=== PATIENT | female | born 1995 | race Caucasian/White ===

== ENCOUNTER 2021-02-04 17:17 | Emergency (ER) | payer BC, SELFPAY ==
[2021-02-04 17:18] VITALS: BP 123/94; PULSE 104; RESP 16; TEMP 36.6; O2SAT 98; BMI 30.1
--- NOTE | 2021-02-04 17:40 | RAD_ITS ---
STUDY: X-RAY - LEFT CLAVICLE REASON FOR EXAM: Female, 25 years old. Injury TECHNIQUE: 2 view(s) of the clavicle. COMPARISON: None. FINDINGS: Normal clavicle. Normal acromioclavicular articulation. Normal visualized sternoclavicular articulation. Normal visualized pulmonary apex. RAD/Clavicle IMPRESSION: Normal x-ray examination of the clavicle. Electronically Signed: Logan Franco DO at 19:28 EDT Tel [phone], Service support ,
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
[2021-02-04] MEDS: Ibuprofen 600 MG Tablet PO (17:53)
[2021-02-04 18:14] LABS: Color, Urine Yellow (Yellow); Glucose, Dipstick Normal (Normal); Ketone-Dipstick 5 mg/dl (Negative); Leukocyte Esterase-Dipstick Negative /ul (Negative); Nitrite-Dipstick Negative (Negative); Occult Blood-Urine 10 /ul (Negative); Protein-Dipstick 15 mg/dl (Negative); Specific Gravity, Urine 1.025 (1.002-1.030); Urine Bilirubin Dipstick Negative (Negative); Urine Clarity Cloudy (Clear); Urine Urobilinogen 1 mg/dl (Normal)
--- NOTE | 2021-02-04 18:15 | RAD_ITS ---
STUDY: X-RAY CHEST REASON FOR EXAM: Female, 25 years old. Trauma TECHNIQUE: Frontal view COMPARISON: None. FINDINGS: The lungs are clear and expanded. There is no demonstrated pleural abnormality. Normal size heart. Normal mediastinum and teresita. Normal visualized pulmonary arteries. Normal visualized aortic arch and descending thoracic aorta. Normal visualized thoracic spine. Normal visualized ribs, clavicles, and shoulders. There is no demonstrated abnormality of the visualized soft tissue structures of the upper abdomen. RAD/Chest 1 View IMPRESSION: Normal x-ray examination of the chest. Electronically Signed: Logan Franco DO at 19:27 EDT Tel [phone], Service support ,
[2021-02-04 18:31] LABS: Mucous, Urine 2+ /hpf (<or=2+); Squamous Epithelial Cells - UA 0-5 SEEN /hpf (5-10)
[2021-02-04 18:33] LABS: Red Blood Cells-Urine 0-5 SEEN /hpf (0-5)
[2021-02-04 18:34] LABS: Bacteria RARE /hpf (None Seen); White Blood Cells 0-5 SEEN /hpf (0-5)
[2021-02-04 19:15] VITALS: PULSE 88; RESP 16; O2SAT 98
== END 2021-02-04 19:16 | disposition home or self-care (01) ==
PROVIDERS: Emergency Provider Emergency Medicine
DX: S40.012A Contusion of left shoulder, initial encounter (principal); Y99.9 Unspecified external cause status; S10.91XA Abrasion of unspecified part of neck, initial encounter; V43.52XA Car driver injured in collision with other type car in traffic accident, initial encounter; Y93.9 Activity, unspecified; Y92.9 Unspecified place or not applicable; Y92.410 Unspecified street and highway as the place of occurrence of the external cause; S00.81XA Abrasion of other part of head, initial encounter
CPT/HCPCS: 71045; 73000; 81001; 99284

== ENCOUNTER 2025-02-18 00:20 | Emergency (ER) | payer BC, SELFPAY ==
[2025-02-18 00:21] VITALS: BP 133/93; PULSE 75; RESP 16; TEMP 36.6; O2SAT 100; BMI 23.4
--- NOTE | 2025-02-18 00:24 | EDS_ITS ---
HPI History of Present Illness Chief Complaint: General Illness [facility] Medical History (Updated 02/18/25 @ 00:[address] Shiv Linder, DO) PCOS (polycystic ovarian syndrome) Home Medications ?Medication ?Instructions ?Recorded ?Last Taken ?Type metformin 500 mg tablet 500 mg PO BID 02/18/25 Unkno wn History prednisone 20 mg tablet 20 mg PO DAILY 4 days #4 tab s 02/18/25 Unknown Rx riboflavin (vitamin B2) 100 mg 200 mg PO BID 02/18/25 Unknown History tablet (Vitamin B-2) Allergy/AdvReac Type Severity Reaction Status Date / Time No Known Allergies Allergy Verified 02/18/25 00:25 Social History Smoking Status: Never smoker EXAM Physical Exam Const Vital Signs: 02/18/25 00:21 02/18/25 00:23 Temperature 98 F Temperature Source Oral Pulse Rate 75 Respiratory Rate 16 Respiratory Effort Normal Non-Labored Respiratory Pattern Normal Blood Pressure 133/93 H Blood Pressure Mean 106 Pulse Ox 100 Oxygen Delivery Method Room Air MDM MDM MDM Narrative Medical decision making narrative: HISTORY OF PRESENT ILLNESS: Chief complaint: Unilateral swollen joints 29-year-old female with pmhx of PCOS presents with all my joints of the left side are swollen and hurt really bad. She notes symptoms have been ongoing for 2 days. She notes pain in her left ankle, left knee and left wrist. 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 Unsure what bug bit her. Denies tick bites. Denies prolonged tick attachment. Denies any bulls eye lesions. Denies fevers, chills, vomiting. Denies chest pain or palpitations. Denies excessive fatigue. She did not use IV drugs. Denies hist ory of diabetes to me. Denies history of autoimmune disease. No family members with similar symptoms. REVIEW OF SYSTEMS: Pertinent positives: Arthralgias Pertinent negatives: Fever, vomiting, weakness, RUVALCABA, excessive fatigue PHYSICAL EXAM: Nursing triage notes reviewed, Vital signs reviewed Constitutional: please see mdm HENT: MMM Eyes: Pupils equal round and reactive to light, Extraocular muscles intact Neck: No stridor, no JVD, full neck ROM Lungs: Clear to auscultation, No wheezing or rales. No increased work of breathing, no conversational dyspnea, no accessory muscle use, no nasal flaring. No respiratory distress noted Heart: Regular rate and rhythm, No murmurs, No rubs and No gallops, 2+ distal pulses (radial, femoral, posterior tibial) in all extremities Abdomen: Soft, there is no tenderness, rigidity, rebound or guarding, no obvious peritoneal signs, no palpable pulsatile abdominal masses, no auscultated abdominal bruit : No CVAT Extremities: No edema, full range of motion all joints in left upper and lower extremities, no obvious effusion or palpable effusion notes of the left ankle, left knee or left wrist. Neuro: No new focal neurological deficits, cranial nerves II through XII intact, 5/5 strength in all present extremities. Intact sensation to light touch in all present extremities, 2+ reflexes bilateral patella tendons. Skin: Nonspecific erythema that appears to be arthropod induced inflammatory changes. MEDICAL DECISION MAKING: Chief Complaint: please see HPI External records reviewed: Reviewed prior ED encounters, no prior imaging nini dies Factors affecting care: PCOS Social determinants of health: none History obtained from others: none Consults: none MDM Narrative: The patient was initially hemodynamically stable, afebrile and nontoxic- appearing. Exam with nonspecific likely arthropod induced inflammatory changes. I considered the following differential diagnosis: Arthralgia secondary to overuse, fracture/dislocation, Lyme disease, autoimmune disease NOS Patient had no fever, no vomiting, no bleeding diathesis. No systemic symptoms which is fatigue, headache. I do not think labs would reveal a causative et iology. Her symptoms are nonspecific likely inflammatory in nature. Recommended oral NSAIDs as well as anti-inflammatory steroid course (20 mg of prednisone for 5 days). Discussed possibly of starting anti-Lyme treatment. Decided against starting doxycycline at this time given patient's lack of definitive history of tick exposure or bull's-eye rash. Recommended close outpatient follow with rheumatology. Gave strict return precautions. The patient and/or family, caregivers express understanding. The patient and/or family, caregivers agrees with the plan. Shared decision making: I will have a discussion with the patient and or visitors regarding risk/benefits of further testing or admission. They will be made aware of of the risk/benefits inherent in this decision they will be given the opportunity to voice understanding. Total critical care time today provided was at least 0 minutes. This excludes separately billable procedures. Critical care time (if documented) is secondary to the patient having high probability of clinically significant/life threatening deterioration in the patient's condition which required my urgent intervention. Impression: 1. Acute arthralgia Dispo: Discharge home This note was generated with [employer] dictation software. It may contain incorrect words, spelling, and punctuation that were not noted in review of the chart prior to signing. Discharge Plan Triage Chief Complaint: General Illness ED Provider: Shiv Linder Dx/Rx/DC Orders Clinical Impression: Arthralgia Instructions: ED Arthralgia Prescriptions: New prednisone 20 mg tablet 20 mg PO DAILY 4 Days Qty: 4 0RF No Action metformin 500 mg tablet 500 mg PO BID riboflavin (vitamin B2) [Vitamin B-2] 100 mg tablet 200 mg PO BID Primary Care Provider: HOWARD QUINTANA Referrals: Melissa Stovall MD [Med Staff - Allergist/Immunologist] - Activity Restrictions/Additional Instructions: Thank you for trusting us with your care today! Please take prednisone as prescribed until course is completed. You are given a dose here in the emergency department. Please take your next dose tomorrow e vening. Please take Tylenol (2 pills, 650 mg), ibuprofen (2 pills, 400 mg) every 6 hours as needed for pain and fever control. If you are suffering from itching please take oral antihistamines (Pepcid and Benadryl/Zyrtec) for additional symptomatic relief. Please return to the emergency department if your symptoms change or worsen. Specifically if develop fever, vomiting, heart racing, chest pain, facial drooping Please follow with Rheumatology (Dr. Stovall) For further outpatient evaluation and management. Print Language: Nepali Disposition Disposition: Home, Self Care Discharge Date/Time: 02/18/25 00:55
[2025-02-18] MEDS: predniSONE 20 MG Tablet PO (00:52)
[2025-02-18] MEDS: Ibuprofen 200 MG Tablet 400 MG PO (00:52)
[2025-02-18 00:53] VITALS: BP 111/88; PULSE 84; RESP 16; TEMP 36.6; O2SAT 99
== END 2025-02-18 00:55 | disposition home or self-care (01) ==
LOC: ED 00:54
PROVIDERS: Emergency Provider Emergency Medicine; PCP Nurse Practitioner; Visit Provider Emergency Medicine
DX: M25.532 Pain in left wrist (principal); M25.562 Pain in left knee; M25.572 Pain in left ankle and joints of left foot
CPT/HCPCS: 99282